=== PATIENT | female | born 1990 | race American Indian/Alaskan Native ===

== ENCOUNTER 2023-05-11 20:28 | Emergency (ER) | payer SELFPAY | END 2023-05-11 20:59 | disposition home or self-care (01) | LOC: DL.ED 20:28 | DX: J06.9 Acute upper respiratory infection, unspecified (principal) | CPT/HCPCS: 82947; 99283 ==

== ENCOUNTER 2023-05-20 20:29 | Emergency (ER) | payer MEDICAID ==
[2023-05-20 21:12] LABS: APPEARANCE,URINE CLEAR (CLEAR); BILIRUBIN,URINE NEGATIVE (NEGATIVE); COLOR,URINE YELLOW (YELLOW); GLUCOSE,URINE >=1000 (NEGATIVE); KETONES,URINE 15 (NEGATIVE); LEUKOCYTE ESTERASE,URINE NEGATIVE (NEGATIVE); NITRITE,URINE NEGATIVE (NEGATIVE); OCCULT BLOOD,URINE NEGATIVE (NEGATIVE); PROTEIN,URINE NEGATIVE (NEGATIVE); UROBILINOGEN,URINE 0.2 mg/dL (0.2-1.0)
[2023-05-20 21:35] LABS: MDMA (ECSTASY), URINE NEGATIVE (NEGATIVE); METHADONE,URINE NEGATIVE (NEGATIVE); METHAMPHETAMINES,URINE NEGATIVE (NEGATIVE); OPIATES,URINE NEGATIVE (NEGATIVE)
[2023-05-20 21:36] LABS: AMPHETAMINES,URINE NEGATIVE (NEGATIVE); BARBITURATES,URINE NEGATIVE (NEGATIVE); BENZODIAZEPINE,URINE NEGATIVE (NEGATIVE); OXYCODONE,URINE NEGATIVE (NEGATIVE); PHENCYCLIDINE,URINE NEGATIVE (NEGATIVE); TCA,URINE NEGATIVE (NEGATIVE)
== END 2023-05-20 21:19 | disposition home or self-care (01) ==
LOC: DL.ED 20:29
DX: T74.21XA Adult sexual abuse, confirmed, initial encounter (principal); Z88.0 Allergy status to penicillin
CPT/HCPCS: 80305-QW; 81003; 82947; 99282; 99283

== ENCOUNTER 2023-10-04 16:25 | Emergency (ER) | payer MEDICAID, OTHER ==
[2023-10-04] MEDS: Diphtheria,Pertussis(Acell),Tetanus Vaccine 0.5 ML Syringe IM ONE (19:33)
== END 2023-10-04 19:46 | disposition home or self-care (01) ==
LOC: DL.ED 16:25
DX: S61.214A Laceration without foreign body of right ring finger without damage to nail, initial encounter (principal); E11.9 Type 2 diabetes mellitus without complications; Z88.0 Allergy status to penicillin; W26.0XXA Contact with knife, initial encounter; Y92.511 Restaurant or cafe as the place of occurrence of the external cause; Y99.0 Civilian activity done for income or pay
CPT/HCPCS: 12001; 99282

== ENCOUNTER 2024-04-29 08:26 | Emergency (ER) | payer MEDICAID ==
[2024-04-29] MEDS: Sodium Chloride 0.9% 1,000 ML IV ONE ×2 (09:12→16:46)
[2024-04-29 09:14] LABS: BASOPHILS PERCENT AUTO 0.2 % (0.0-1.0); EOSINOPHILS PERCENT AUTO 1.1 % (1.0-3.0); HEMATOCRIT 47.1 % (37.0-47.0); HEMOGLOBIN 15.9 g/dL (12.0-16.0); LYMPHOCYTES PERCENT AUTO 18.2 % (20.5-50.1); MEAN CORPUSCULAR HEMOGLOBIN 31.1 pg (27.0-34.0); MEAN CORPUSCULAR HGB CONC 33.8 g/dL (33.0-35.0); MEAN CORPUSCULAR VOLUME 92.2 fL (80-100); MONOCYTES PERCENT AUTO 6.7 % (2-8); NEUTROPHILS PERCENT AUTO 73.8 % (42.2-75.2); PLATELET COUNT,PLT 277 10^3/uL (150-450); RED BLOOD CELL COUNT 5.11 10^6/uL (4.2-5.4); WHITE BLOOD CELL COUNT,WBC 9.4 10^3/uL (5.0-10.0)
[2024-04-29 09:31] LABS: HCG QUALITATIVE,SERUM NEGATIVE (NEGATIVE)
[2024-04-29 09:40] LABS: ALANINE AMINOTRANSFERASE,ALT 16 U/L (14-59); ALBUMIN 3.5 g/dL (3.4-5.0); ALKALINE PHOSPHATASE 54 U/L (46-116); ASPARTATE AMNIOTRANSFERASE,AST 9 U/L (15-37); BILIRUBIN TOTAL 0.4 mg/dL (0.2-1.0); BLOOD UREA NITROGEN,BUN 13 mg/dL (7-18); BUN/CREATININE RATIO 17.8 (No establ ref range); CARBON DIOXIDE,CO2 28 mmol/L (21-32); CHLORIDE,CL 99 mmol/L (98-107); CREATININE 0.73 mg/dL (0.55-1.02); EST CRCL DRUG DOSING (CG) 98.63 mL/min; GLUCOSE RANDOM 117 mg/dL (70-99); MAGNESIUM 1.9 mg/dL (1.8-2.4)
[2024-04-29 09:43] LABS: LACTIC ACID 1.6 mmol/L (0.4-2.0)
[2024-04-29 09:44] LABS: ANION GAP 11.3 mEq/L (7-13); POTASSIUM,K 3.3 mmol/L (3.5-5.1); SODIUM,NA 135 mmol/L (136-145)
[2024-04-29 09:50] LABS: ESTIMATED GFR 111 mL/min (>=60); ETHANOL BLOOD MEDICAL < 3 mg/dL (0)
[2024-04-29 09:51] LABS: B-TYPE NATRIURETIC PEPTIDE,BNP < 5 pg/ml (0-100)
[2024-04-29 10:13] LABS: APPEARANCE,URINE SLIGHTLY CLOUDY (CLEAR); BILIRUBIN,URINE NEGATIVE (NEGATIVE); COLOR,URINE YELLOW (YELLOW); GLUCOSE,URINE 500 (NEGATIVE); KETONES,URINE NEGATIVE (NEGATIVE); LEUKOCYTE ESTERASE,URINE NEGATIVE (NEGATIVE); NITRITE,URINE POSITIVE (NEGATIVE); OCCULT BLOOD,URINE NEGATIVE (NEGATIVE); PROTEIN,URINE NEGATIVE (NEGATIVE); UROBILINOGEN,URINE 0.2 mg/dL (0.2-1.0)
[2024-04-29] MEDS: Potassium Chloride 10 MEQ Tab.ER PO ONE (10:15)
[2024-04-29 10:16] LABS: AMPHETAMINES,URINE NEGATIVE (NEGATIVE); BARBITURATES,URINE NEGATIVE (NEGATIVE); BENZODIAZEPINE,URINE NEGATIVE (NEGATIVE); MDMA (ECSTASY), URINE NEGATIVE (NEGATIVE); METHADONE,URINE NEGATIVE (NEGATIVE); METHAMPHETAMINES,URINE NEGATIVE (NEGATIVE); OPIATES,URINE NEGATIVE (NEGATIVE); OXYCODONE,URINE NEGATIVE (NEGATIVE); PHENCYCLIDINE,URINE NEGATIVE (NEGATIVE); TCA,URINE NEGATIVE (NEGATIVE)
[2024-04-29 10:45] LABS: BACTERIA,URINE MANY /HPF (0-FEW/HPF); EPITHELIAL CELLS,URINE FEW /HPF (NOT SEEN); RBC,URINE 0-5 /HPF (0-5); WBC,URINE 0-5 /HPF (0-5/HPF)
== END 2024-04-29 17:09 ==
LOC: DL.ED 08:26
DX: T43.212A Poisoning by selective serotonin and norepinephrine reuptake inhibitors, intentional self-harm, initial encounter (principal); T38.3X2A Poisoning by insulin and oral hypoglycemic [antidiabetic] drugs, intentional self-harm, initial encounter; T46.6X2A Poisoning by antihyperlipidemic and antiarteriosclerotic drugs, intentional self-harm, initial encounter; E87.6 Hypokalemia; E78.00 Pure hypercholesterolemia, unspecified; E11.9 Type 2 diabetes mellitus without complications; Z88.0 Allergy status to penicillin; Z88.5 Allergy status to narcotic agent; Z88.8 Allergy status to other drugs, medicaments and biological substances; Z79.84 Long term (current) use of oral hypoglycemic drugs; Z79.899 Other long term (current) drug therapy
CPT/HCPCS: 36415; 80053; 80143; 80179; 80305-QW; 80307; 81001; 82947; 83540; 83605; 83735; 83880; 84443; 84484; 84703; 85025; 85610; 87086; 87088; 87186; 87428-QW; 93005; 93010; 96360; 96361; 99285; 99285-25; A9270-GY; J7030

== ENCOUNTER 2024-07-19 20:15 | Emergency (ER) | payer MEDICAID ==
[2024-07-19 20:47] LABS: APPEARANCE,URINE SLIGHTLY CLOUDY (CLEAR); BILIRUBIN,URINE NEGATIVE (NEGATIVE); COLOR,URINE YELLOW (YELLOW); GLUCOSE,URINE >=1000 (NEGATIVE); KETONES,URINE NEGATIVE (NEGATIVE); LEUKOCYTE ESTERASE,URINE TRACE (NEGATIVE); NITRITE,URINE NEGATIVE (NEGATIVE); OCCULT BLOOD,URINE SMALL (NEGATIVE); PH,URINE 6.5 (5.0-9.0); PROTEIN,URINE NEGATIVE (NEGATIVE); UROBILINOGEN,URINE 0.2 mg/dL (0.2-1.0)
[2024-07-19 21:06] LABS: BACTERIA,URINE MODERATE /HPF (0-FEW/HPF); EPITHELIAL CELLS,URINE MANY /HPF (NOT SEEN); MUCUS,URINE FEW /LPF (NOT SEEN); WBC,URINE 30-40 /HPF (0-5/HPF)
[2024-07-19 21:07] LABS: YEAST,URINE RARE /HPF (NOT SEEN)
[2024-07-19] MEDS: Sulfamethoxazole/Trimethoprim 800-160 MG Tab PO ONE (22:05)
[2024-07-19] MEDS: Acyclovir 200 MG Cap PO ONE (22:05)
[2024-07-19] MEDS: Fluconazole 100 MG Tab PO ONE (22:05)
[2024-07-21 11:46] LABS: C.TRACHOMATIS BY TMA Negative (Negative); M GENITALIUM Positive (Negative); M GENITALIUM SOURCE Genital; N.GONORRHOEAE BY TMA Negative (Negative); SOURCE Genital
== END 2024-07-19 22:19 | disposition home or self-care (01) ==
LOC: DL.ED 20:15
DX: B37.49 Other urogenital candidiasis (principal); B00.9 Herpesviral infection, unspecified
CPT/HCPCS: 36415; 81001; 81025; 86592; 87086; 87088; 87186; 87210; 87389; 87491; 87529; 87563; 87591; 99283; 99284; A9270-GY

== ENCOUNTER 2024-09-04 02:24 | Emergency (ER) | payer MEDICAID ==
[2024-09-04 03:57] LABS: APPEARANCE,URINE SLIGHTLY CLOUDY (CLEAR); BILIRUBIN,URINE NEGATIVE (NEGATIVE); GLUCOSE,URINE 500 (NEGATIVE); KETONES,URINE 15 (NEGATIVE); LEUKOCYTE ESTERASE,URINE TRACE (NEGATIVE); NITRITE,URINE NEGATIVE (NEGATIVE); OCCULT BLOOD,URINE TRACE-INTACT (NEGATIVE); PH,URINE 5.5 (5.0-9.0); PROTEIN,URINE NEGATIVE (NEGATIVE); UROBILINOGEN,URINE 0.2 mg/dL (0.2-1.0)
[2024-09-04 03:59] LABS: COLOR,URINE LIGHT YELLOW (YELLOW)
[2024-09-04 04:22] LABS: BACTERIA,URINE FEW /HPF (0-FEW/HPF); EPITHELIAL CELLS,URINE FEW /HPF (NOT SEEN); RBC,URINE 0-5 /HPF (0-5); WBC,URINE 0-5 /HPF (0-5/HPF); YEAST,URINE FEW /HPF (NOT SEEN)
[2024-09-04] MEDS: Fluconazole 100 MG Tab PO ONE (04:25)
== END 2024-09-04 04:29 | disposition home or self-care (01) ==
LOC: DL.ED 02:24
DX: B37.31 Acute candidiasis of vulva and vagina (principal); E78.00 Pure hypercholesterolemia, unspecified; E11.9 Type 2 diabetes mellitus without complications; Z88.5 Allergy status to narcotic agent; Z88.0 Allergy status to penicillin; Z88.8 Allergy status to other drugs, medicaments and biological substances; Z79.899 Other long term (current) drug therapy; Z79.84 Long term (current) use of oral hypoglycemic drugs
CPT/HCPCS: 81001; 81025; 87086; 87088; 87186; 87210; 99284; A9270; 99283